=== PATIENT | male | born 2000 | race Caucasian/White ===

== ENCOUNTER 2024-12-13 19:53 | Emergency (ER) | payer OTHER ==
[~2024-12-13] VITALS: Ht 182.9 cm; Wt 79.8 kg
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
--- NOTE | 2024-12-13 20:29 | NUR ---
C-COLLAR IN PLACE AT TRIAGE.
--- NOTE | 2024-12-13 20:35 | NUR ---
PATIENT TAKEN TO CT SCAN
--- NOTE | 2024-12-13 20:57 | HMCIMG ---
LEFT KNEE RADIOGRAPHS - 3 VIEWS INDICATION: Pain COMPARISON: None FINDINGS: AP, lateral, and oblique views. No fracture or dislocation identified. No significant joint effusion is present. Overlying soft tissues appear normal. No radiopaque foreign body noted. IMPRESSION: No evidence for fracture or dislocation.
--- NOTE | 2024-12-13 20:57 | HMCIMG ---
LUMBAR SPINE RADIOGRAPHS - 2-3 VIEWS INDICATION: Back pain COMPARISON: None FINDINGS: AP, lateral views. Normal lordotic curvature of the lumbar spine is maintained. Five nonrib-bearing lumbar vertebral bodies are noted. No acute fracture or subluxation identified. Vertebral body heights are well-maintained. Disc spaces are well-preserved. IMPRESSION: No fracture or subluxation identified.
--- NOTE | 2024-12-13 20:58 | HMCIMG ---
LEFT HIP, INCLUDING AP PELVIS, RADIOGRAPHS - 2 VIEWS INDICATION: Pain COMPARISON: None FINDINGS: Abduction view of the left hip and single AP view of the pelvis. No acute fracture or subluxation identified. Both femoral heads are well formed without osteochondral erosion or radiographic evidence for avascular necrosis. No radiopaque foreign body noted. IMPRESSION: No evidence for fracture or dislocation.
[2024-12-13] MEDS ORDERED: CEPH500T PO (21:17)
[2024-12-13] MEDS ORDERED: CYCL-309 PO (21:17)
[2024-12-13] MEDS ORDERED: IBUP-2077 PO (21:17)
[2024-12-13] MEDS: CYCLOBENZAPRINE HCL 10 MG TABLET PO ONE (21:29)
[2024-12-13] MEDS: ibuPROFEN 800 MG TAB PO ONE (21:30)
[2024-12-13 21:32] VITALS: BP 124/74; PULSE 66; RESP 20; TEMP 98; O2SAT 100
== END 2024-12-13 21:33 | disposition home or self-care (01) ==
LOC: EDH 19:53
DX: S39.012A Strain of muscle, fascia and tendon of lower back, initial encounter (principal); S70.02XA Contusion of left hip, initial encounter; S80.02XA Contusion of left knee, initial encounter; S80.212A Abrasion, left knee, initial encounter; V29.99XA Rider (driver) (passenger) of other motorcycle injured in unspecified traffic accident, initial encounter; Y93.89 Activity, other specified; Y92.488 Other paved roadways as the place of occurrence of the external cause; Y99.8 Other external cause status
CPT/HCPCS: 72100; 73502; 73562; 99284

== ENCOUNTER 2025-08-24 11:31 | Emergency (ER) | payer OTHER ==
[~2025-08-24] VITALS: Ht 182.9 cm; Wt 76.2 kg
[~2025-08-24 11:31] MED LIST: CEPH500T PO; CYCL-309 PO; IBUP-2077 PO
[2025-08-24] MEDS ORDERED: ACET-2247 PO (11:49)
[2025-08-24] MEDS ORDERED: IBUP-2077 PO (11:49)
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
[2025-08-24 12:02] VITALS: BP 120/72; PULSE 61; RESP 20; TEMP 98; O2SAT 100
--- NOTE | 2025-08-24 12:05 | NUR ---
PRESCRIPTIONS GIVEN TO PT AT THIS TIME.
== END 2025-08-24 12:06 | disposition home or self-care (01) ==
LOC: EDH 11:31
DX: R68.84 Jaw pain (principal); Z79.1 Long term (current) use of non-steroidal anti-inflammatories (NSAID)
CPT/HCPCS: 99282